=== PATIENT | female | born 1990 | race Caucasian/White ===

== ENCOUNTER 2016-12-30 18:01 | Emergency (ER) | payer OTHER ==
[~2016-12-30] VITALS: Ht 157.5 cm; Wt 56.7 kg
[2016-12-30] MEDS ORDERED: IRON65TA PO (18:11)
[2016-12-30] MEDS ORDERED: NS 1,000 ML IV ONE (18:30)
[2016-12-30] MEDS ORDERED: ONDANSETRON 4MG/2ML VIAL (J2405) IV ONE (18:45)
[2016-12-30 20:14] VITALS: BP 118/84
== END 2016-12-30 20:16 | disposition home or self-care (01) ==
LOC: M ED 18:39
DX: F55.8 Abuse of other non-psychoactive substances (principal); R42 Dizziness and giddiness; Z87.891 Personal history of nicotine dependence; Z79.899 Other long term (current) drug therapy
CPT/HCPCS: 96374; 99282; J2405